=== PATIENT | female | born 1960 | race Hispanic/Latino ===

== ENCOUNTER 2024-10-23 08:28 | Emergency (ER) | payer OTHER ==
[~2024-10-23] VITALS: Ht 160 cm; Wt 73.9 kg
[2024-10-23 08:35] VITALS: PULSE 85; RESP 18; TEMP 97
[2024-10-23] MEDS ORDERED: IOPAMIDOL 370 MG/ML 100 ML INFUS..BTL INJ ONE (09:24)
[2024-10-23 12:21] VITALS: BP 132/77; PULSE 74; RESP 15; TEMP 96.6; O2SAT 98
[2024-10-23] MEDS ORDERED: PEPCID20 MG PO (12:23)
== END 2024-10-23 12:44 | disposition home or self-care (01) ==
LOC: FSED 08:34
DX: R10.12 Left upper quadrant pain (principal); K29.70 Gastritis, unspecified, without bleeding; R18.8 Other ascites; R93.89 Abnormal findings on diagnostic imaging of other specified body structures; K76.0 Fatty (change of) liver, not elsewhere classified
CPT/HCPCS: 74177; 76830; 76856; 80048; 80076; 81003; 84484; 85025; 93005; 99284; Q9967